=== PATIENT | female | born 1965 | race Two or more races ===

== ENCOUNTER 2016-07-15 02:48 | Emergency (ER) | payer OTHER ==
[~2016-07-15] VITALS: Ht 162.6 cm; Wt 86.6 kg
[~2016-07-15 02:48] MED LIST: ALBUTEROL INH; Q VAR
[2016-07-15] MEDS ORDERED: IBUPROFEN 600 MG TAB PO ONE (04:15)
[2016-07-15] MEDS ORDERED: diphenhdrAMINE HCL 50 MG/1 ML VL ONE (04:17)
[2016-07-15] MEDS ORDERED: diphenhdrAMINE HCL 50 MG/1 ML VL IM ONE (04:30)
[2016-07-15 04:35] VITALS: BP 133/99
== END 2016-07-15 04:42 | disposition home or self-care (01) ==
LOC: ER 02:53
DX: S93.601A Unspecified sprain of right foot, initial encounter (principal); W01.0XXA Fall on same level from slipping, tripping and stumbling without subsequent striking against object, initial encounter; Y93.89 Activity, other specified; Y92.89 Other specified places as the place of occurrence of the external cause; Y99.8 Other external cause status
CPT/HCPCS: 73610; 96372; 99284; J1200